=== PATIENT | female | born 1990 | race Caucasian/White ===

== ENCOUNTER 2017-06-28 08:58 | Emergency (ER) | payer SELFPAY ==
[2017-06-28 09:05] VITALS: TEMP 96.8; O2SAT 98
--- NOTE | 2017-06-28 09:16 | EDPHY ---
H & P Stated Complaint: Sharp Epigastric cramping this am;no n/v/d Time Seen by Provider: 06/28/17 09:15 HPI/ROS: CHIEF COMPLAINT: Epigastric pain HISTORY OF PRESENT ILLNESS: Patient presents to the ED with complaints of sharp epigastric pain that began earlier this morning. The patient reports her symptoms are worsened with movement and deep breaths. She reports prior history of the symptoms approximately a year ago which seemed to be more chest pain. She had a negative workup at that point time in the emergency department. The patient denies taking any regular medications. She denies vomiting or diarrhea. She has no complaints of melena. She has no prior history of PE or DVT. She reports her symptoms are moderate in nature. REVIEW OF SYSTEMS: A comprehensive 10 point review of systems is otherwise negative aside from elements mentioned in the history of present illness. Source: Patient Exam Limitations: No limitations - Personal History LMP (Females 10-55): IUD In Place Current Tetanus Diphtheria and Acellular Pertussis (TDAP): Yes - Medical/Surgical History Hx Asthma: Yes Other PMH: exercise induced asthma. migraines - Social History Smoking Status: Never smoked - Physical Exam Exam: General Appearance: Alert, anxious, hyperventilating Eyes: Pupils equal and round no pallor or injection ENT, Mouth: Mucous membranes moist Respiratory: There are no retractions, lungs are clear to auscultation Cardiovascular: Regular rate and rhythm Gastrointestinal: Minimal epigastric tenderness to palpation Neurological: A&O, normal motor function, normal sensory exam, normal cranial nerves Skin: Warm and dry, no rashes Musculoskeletal: Neck is supple nontender Extremities: symmetrical, full range of motion Constitutional: Initial Vital Signs Temperature (C) 36 C 06/28/17 09:02 Heart Rate 87 06/28/17 09:02 Respiratory Rate 18 06/28/17 09:02 Blood Pressure 130/87 H 06/28/17 09:02 O2 Sat (%) 98 06/28/17 09:02 O2 Delivery Mode Room Air Allergies/Adverse Reactions: No Known Allergies Allergy (Unverified 06/28/17 09:02) Home Medications: Medication Instructions Recorded Gabapentin [Neurontin 300 MG (*)] 300 mg PO 06/28/17 Medical Decision Making - Diagnostics Imaging Results: Imaging Impressions Abdomen Ultrasound 06/28/17 09:20 Impression: No cholelithiasis or biliary ductal dilation. Findings and recommendations discussed with Emergency Department physician, Mariela Tolbert PA-C at 11:57 hour, 06/28/2017. Final report concurs with initial preliminary interpretation. ED Course/Re-evaluation: The patient presents to the ED for evaluation of upper abdominal pain for the past day. The patient was noted to have mild epigastric tenderness on palpation. She also had some inspiratory chest pain. Her workup in the emergency department included D-dimer which was negative and I feel this adequately excludes pulmonary embolism. The patient had normal liver function tests, lipase and a gallbladder ultrasound. The patient's urinalysis is unremarkable. The patient had an IV established and received a L of normal saline. She did receive IV narcotic pain medication. Patient underwent serial examinations in the ED over a 3 hr period. - Data Points Laboratory Results: Laboratory Results 06/28/17 09:10 06/28/17 09:10 06/28/17 06/28/17 06/28/17 09:25 09:10 09:10 WBC RBC Hgb Hct MCV MCH MCHC RDW Plt Count MPV Neut % (Auto) Lymph % (Auto) [place] % (Auto) Eos % (Auto) Baso % (Auto) Nucleat RBC Rel Count Absolute Neuts (auto) Absolute Lymphs (auto) Absolute Monos (auto) Absolute Eos (auto) Absolute Basos (auto) Absolute Nucleated RBC Immature Gran % Immature Gran # D-Dimer Sodium 139 mEq/L mEq/L (135-145) Potassium 3.3 mEq/L L mEq/L (3.5-5.2) Chloride 103 mEq/L mEq/L (97-110) Carbon Dioxide 24 mEq/l mEq/l (22-31) Anion Gap 12 mEq/L mEq/L (8-16) BUN 13 mg/dL mg/dL (7-23) Creatinine 0.7 mg/dL mg/dL (0.6-1.0) Estimated GFR > 60 Glucose 90 mg/dL mg/dL (70-100) Calcium 10.4 mg/dL mg/dL (8.5-10.4) Total Bilirubin 0.7 mg/dL mg/dL (0.1-1.4) Conjugated Bilirubin 0.3 mg/dL mg/dL (0.0-0.5) Unconjugated Bilirubin 0.4 mg/dL mg/dL (0.0-1.1) AST 48 IU/L H IU/L (14-46) ALT 41 IU/L IU/L (9-52) Alkaline Phosphatase 58 IU/L IU/L (38-126) Total Protein 6.8 g/dL g/dL (6.3-8.2) Albumin 4.4 g/dL g/dL (3.5-5.0) Lipase 54 IU/L IU/L (23-300) Beta HCG, Qual NEGATIVE Urine Color YELLOW Urine Appearance CLEAR Urine pH 5.0 (5.0-7.5) Ur Specific [place] 1.014 (1.002-1.030) Urine Protein NEGATIVE (NEGATIVE) Urine Ketones NEGATIVE (NEGATIVE) Urine Blood NEGATIVE (NEGATIVE) Urine Nitrate NEGATIVE (NEGATIVE) Urine Bilirubin NEGATIVE (NEGATIVE) Urine Urobilinogen NEGATIVE EU EU (0.2-1.0) Ur Leukocyte Esterase NEGATIVE (NEGATIVE) Urine Glucose NEGATIVE (NEGATIVE) 06/28/17 06/28/17 09:10 09:10 WBC 12.63 10^3/uL H 10^3/uL (3.80-9.50) RBC 4.27 10^6/uL 10^6/uL (4.18-5.33) Hgb 14.3 g/dL g/dL (12.6-16.3) Hct 40.7 % % (38.0-47.0) MCV 95.3 fL fL (81.5-99.8) MCH 33.5 pg pg (27.9-34.1) MCHC 35.1 g/dL g/dL (32.4-36.7) RDW 11.3 % L % (11.5-15.2) Plt Count 188 10^3/uL 10^3/uL (150-400) MPV 9.8 fL fL (8.7-11.7) Neut % (Auto) 83.8 % H % (39.3-74.2) Lymph % (Auto) 6.6 % L % (15.0-45.0) [place] % (Auto) 8.8 % % (4.5-13.0) Eos % (Auto) 0.1 % L % (0.6-7.6) Baso % (Auto) 0.2 % L % (0.3-1.7) Nucleat RBC Rel Count 0.0 % % (0.0-0.2) Absolute Neuts (auto) 10.60 10^3/uL H 10^3/uL (1.70-6.50) Absolute Lymphs (auto) 0.83 10^3/uL L 10^3/uL (1.00-3.00) Absolute Monos (auto) 1.11 10^3/uL H 10^3/uL (0.30-0.80) Absolute Eos (auto) 0.01 10^3/uL L 10^3/uL (0.03-0.40) Absolute Basos (auto) 0.02 10^3/uL 10^3/uL (0.02-0.10) Absolute Nucleated RBC 0.00 10^3/uL 10^3/uL (0-0.01) Immature Gran % 0.5 % % (0.0-1.1) Immature Gran # 0.06 10^3/uL 10^3/uL (0.00-0.10) D-Dimer < 0.27 ug/mLFEU ug/mLFEU (0.00-0.50) Sodium Potassium Chloride Carbon Dioxide Anion Gap BUN Creatinine Estimated GFR Glucose Calcium Total Bilirubin Conjugated Bilirubin Unconjugated Bilirubin AST ALT Alkaline Phosphatase Total Protein Albumin Lipase Beta HCG, Qual Urine Color Urine Appearance Urine pH Ur Specific [place] Urine Protein Urine Ketones Urine Blood Urine Nitrate Urine Bilirubin Urine Urobilinogen Ur Leukocyte Esterase Urine Glucose Medications Given: Discontinued Medications Fentanyl (Sublimaze) 100 mcg IVP EDNOW ONE Stop: 06/28/17 09:20 Last Admin: 06/28/17 09:26 Dose: 100 mcg Sodium Chloride (Ns) 1,000 mls @ 0 mls/hr IV EDNOW ONE; Wide Open PRN Reason: Protocol Stop: 06/28/17 09:20 Last Admin: 06/28/17 09:26 Dose: 1,000 mls Departure - Departure Disposition: Home, Routine, Self-Care Clinical Impression: Abdominal pain Condition: Good Instructions: Acute Abdominal Pain (DC) Additional Instructions: 1. Sometimes we are unable to diagnose an obvious cause of abdominal pain in the Emergency Department. Based upon our evaluation today, we see no obvious explanation for your pain. Because more serious conditions can be difficult to diagnose early in the course of their presentation, we ask that you return to the Emergency Department in 8-12 hours for a recheck if you are still having pain. This is necessary to exclude the development of a more serious condition such as appendicitis or other intra-abdominal emergency. In the event your pain markedly increases before that time or you develop intractable vomiting or fever return to the Emergency Department immediately. 2. Zantac 150mg twice daily as directed. 3. Return to the ED for markedly worsening symptoms.
[2017-06-28] MEDS ORDERED: fentaNYL 100 MCG/2 ML INJ IVP ONE (09:19)
[2017-06-28] MEDS ORDERED: NS 1,000 ML IV ONE (09:19)
[2017-06-28 09:26] LABS: PLATELET COUNT 188 10^3/uL (150-400)
[2017-06-28 12:54] VITALS: BP 117/69; PULSE 79; RESP 16
== END 2017-06-28 12:53 | disposition home or self-care (01) ==
DX: R10.13 Epigastric pain (principal); E86.9 Volume depletion, unspecified; J45.909 Unspecified asthma, uncomplicated
CPT/HCPCS: 96374; J3010